=== PATIENT | female | born 1965 | race Caucasian/White ===

== ENCOUNTER 2017-01-02 20:21 | Inpatient (IN) | payer SELFPAY ==
[~2017-01-02] VITALS: Ht 160 cm; Wt 95.8 kg
[~2017-01-02 20:21] MED LIST: BIAXIN500 MG PO; CLARITIN10 MG PO; DAYPRO600 M1 PO; KEFLEX500 MG PO; MOTRIN800 MG PO; SYNTHROID0.1 MG PO
[2017-01-02 20:34] VITALS: BP 179/81
[2017-01-02 20:37] LABS: BASO # 0.1 10*3/uL (0.0-0.1); BASO % 0.9 % (0.0-1.0); EOS # 0.1 10*3/uL (0.0-0.4); HEMATOCRIT 44.2 % (37.0-47.0); HEMOGLOBIN 14.7 g/dl (12.0-16.0); LYMPH # 2.7 10*3/uL (1.3-4.4); LYMPH % 39.2 % (27.0-41.0); MEAN CELL VOLUME 90.9 fl (81.0-99.0); MEAN CORPUSCULAR HGB 30.2 pg (27.0-31.0); MEAN CORPUSCULAR HGB CONC 33.3 g/dl (33.0-37.0); MONO # 0.5 10*3/uL (0.1-1.0); MONO % 6.9 % (3.0-9.0); NEUT # 3.6 10*3/uL (2.3-7.9); NEUT % 51.7 % (47.0-73.0); PLATELET COUNT AUTOMATED 210 10*3/uL (130-400); RED BLOOD COUNT 4.86 10*6/uL (4.10-5.10); RED CELL DISTRI WIDTH 13.2 % (0-14.5); WHITE BLOOD COUNT 6.9 10*3/uL (4.8-10.8)
[2017-01-02 20:46] LABS: INTERNATIONAL NORM RATIO 0.9 (2.0-3.5)
[2017-01-02 20:49] VITALS: BP 123/68
[2017-01-02 20:54] LABS: ALBUMIN 4.2 gm/dl (3.1-4.5); ALKALINE PHOSPHATASE 92 U/L (45-117); BILIRUBIN, TOTAL 0.5 mg/dl (0.2-1.0); BUN 19 mg/dl (7-24); CARBON DIOXIDE 25 mmol/L (21-32); CHLORIDE 104 mmol/L (98-107); EST GLOM FILT AFRICAN AMERICAN > 60 ml/min; GLUCOSE 126 mg/dL (65-99); MAGNESIUM 1.8 mg/dL (1.5-2.1); POTASSIUM 3.8 mmol/L (3.5-5.1); SGOT/AST 33 IU/L (3-35); SGPT/ALT 37 U/L (12-78); SODIUM 137 mmol/L (136-145); TOTAL PROTEIN 8.2 gm/dL (6.4-8.2)
[2017-01-02 20:56] LABS: TROPONIN I < 0.015 ng/ml (<0.045)
[2017-01-02 21:01] VITALS: BP 117/68
[2017-01-02 21:38] VITALS: BP 129/58
[2017-01-02 22:13] VITALS: BP 112/62
[2017-01-02 23:00] VITALS: BP 110/70
[2017-01-03] VITALS: BP 146/75
[2017-01-03 07:03] LABS: EOS # 0.1 10*3/uL (0.0-0.4); EOS % 1.5 % (1.0-4.0); HEMATOCRIT 41.3 % (37.0-47.0); HEMOGLOBIN 13.4 g/dl (12.0-16.0); LYMPH # 1.4 10*3/uL (1.3-4.4); LYMPH % 35.4 % (27.0-41.0); MEAN CORPUSCULAR HGB 29.8 pg (27.0-31.0); MEAN CORPUSCULAR HGB CONC 32.4 g/dl (33.0-37.0); MEAN PLATELET VOLUME 10.1 fl (9.6-12.3); MONO # 0.3 10*3/uL (0.1-1.0); NEUT # 2.1 10*3/uL (2.3-7.9); NEUT % 53.8 % (47.0-73.0); PLATELET COUNT AUTOMATED 186 10*3/uL (130-400); RED BLOOD COUNT 4.49 10*6/uL (4.10-5.10); RED CELL DISTRI WIDTH 13.3 % (0-14.5)
[2017-01-03 07:28] LABS: BUN 16 mg/dl (7-24); CARBON DIOXIDE 26 mmol/L (21-32); CHLORIDE 109 mmol/L (98-107); CHOLESTEROL 283 mg/dL (<200); EST GLOM FILT AFRICAN AMERICAN > 60 ml/min; FREE T4 0.74 ng/dl (0.76-1.46); GLUCOSE 97 mg/dL (65-99); HDL CHOLESTEROL 54 mg/dl (40-60); INTERNATIONAL NORM RATIO 0.9 (2.0-3.5); LDL CHOLESTEROL 211 mg/dL (9-159); POTASSIUM 4.2 mmol/L (3.5-5.1); SODIUM 144 mmol/L (136-145); TRIGLYCERIDES 88 mg/dl (<150); VLDL CHOLESTEROL 18 mg/dL (6-40)
[2017-01-03 07:42] LABS: HEMOGLOBIN A1c 6.1 % (4.8-5.6)
[2017-01-03 08:00] VITALS: BP 131/67
[2017-01-03 08:06] LABS: VITAMIN D, 25-HYDROXY 31.2 ng/mL (30-100)
[2017-01-03 08:07] LABS: FOLIC ACID 10.98 ng/mL (>5.38)
[2017-01-03] MEDS ORDERED: LIPITOR20 MG PO (11:47)
[2017-01-03] MEDS ORDERED: SYNTHROID RP0.1 MG PO (11:47)
[2017-01-03 12:00] VITALS: BP 120/90
[2017-01-03] MEDS ORDERED: OMEPRAZOLE20 M2 PO (12:00)
== END 2017-01-03 12:50 | disposition home or self-care (01) | DRG 392 ==
LOC: ED 20:21 → 4E 22:24 → EDHOLD 22:24 → 4E 22:30
PROVIDERS: Emergency Medicine Emergency Medical Services; Internal Medicine
DX: K21.9 Gastro-esophageal reflux disease without esophagitis (principal); Z68.41 Body mass index [BMI] 40.0-44.9, adult; E78.5 Hyperlipidemia, unspecified; E03.9 Hypothyroidism, unspecified; E66.9 Obesity, unspecified; R73.03 Prediabetes; Z88.0 Allergy status to penicillin; Z82.49 Family history of ischemic heart disease and other diseases of the circulatory system

== ENCOUNTER 2018-03-02 06:50 | Inpatient (IN) | payer SELFPAY ==
[2018-03-02] VITALS (7 sets, daily range): BP systolic 116–175; BP diastolic 59–81
[~2018-03-02] VITALS: Ht 160 cm; Wt 95.9 kg
--- NOTE | ~2018-03-02 | WRIGHTHP ---
[place], [place] PATIENT HISTORY AND PHYSICAL EXAM NAME: AFUA TELLES UNIT #: [id number] ROOM: 518 DOCTOR: MESHA MENESES MD BIRTHDATE: [birth year] DOS: 03/02/2018 HISTORY OF PRESENT ILLNESS: The patient is a 52-year-old female with a past medical history of varicose veins, iron deficiency, hypothyroidism, obesity with BMI of 37.4. The patient presented to the Emergency Department with recurrent complaints of chest tightness, chest pains and feeling unwell. The patient had a CT angiogram performed in the Emergency Department showed no pulmonary embolism or any other abnormality. Cardiac enzymes were performed and they were all negative and then patient was taken for a cardiac stress test. REVIEW OF SYSTEMS: RESPIRATORY: Some complaints of progressive shortness of breath for over last 3 months. No wheezing. GASTROINTESTINAL: No nausea, vomiting, diarrhea, constipation. CARDIOVASCULAR: Complains of chest tightness and chest pains off and on. FAMILY HISTORY: Noncontributory. HOME MEDICATIONS: The patient was taking ibuprofen at home as needed. SOCIAL HISTORY: Denies smoking cigarettes, alcohol and drug abuse. ALLERGIES: Known allergies to PENICILLIN. PHYSICAL EXAMINATION: GENERAL: Alert and oriented x 3, moderately obese with a BMI of 37. 4, standard exam except for obesity. LABORATORY DATA: Negative cardiac enzymes x 3. Normal serum electrolytes. Normal CBC. IMPRESSION: 1. The patient presenting with chest tightness and chest pain from uncertain etiology with negative cardiac enzymes, was taken for a cardiac stress test this morning, which is normal so far. If Cardiolite is also reported to be negative by Cardiology later today, she can be safely discharged home to follow up with her PCP, Dr. Ivan Hanley. 2. CT angiogram of the chest negative for pulmonary embolism. 3. Suspected generalized anxiety disorder. 4. Obesity. With a BMI of 37.4 the patient to work with [employer]. [place], [place] PATIENT HISTORY AND PHYSICAL EXAM NAME: AFUA TELLES UNIT #: [id number] ROOM: 518 DOCTOR: MESHA MENESES MD BIRTHDATE: [birth year] MESHA MENESES MD CM:HISPHYS:PATIENT HISTORY AND PHYSICAL EXAMINATION 09 MESHA MENESES MD 03/03/18 1107 interface
--- NOTE | ~2018-03-02 | ST ---
[place], [place] EXERCISE STRESS TEST REPORT NAME: AFUA TELLES UNIT #: [id number] ROOM: 518 DOCTOR: MESHA MENESES MD BIRTHDATE: [birth year] DOS: 03/03/2018 TREADMILL TEST WITH CARDIOLITE FINDINGS: The patient is a 52-year-old female admitted to [facility] for chest pains. The patient's cardiac enzymes have been negative. The patient was exercised on James protocol and she exercised for a total of 6 minutes, reaching a maximum heart rate of 153 beats per minute, which is 91% of the PMHR. Cardiolite was injected during the peak phase of exercise. The patient's heart rate ranged between 94 to 153 beats per minute, blood pressure ranged between 124 systolic over 76 diastolic and 144 systolic over 88 diastolic. The patient's pulse ox remained 97 to 98% during the resting and exercise phase. The patient's baseline EKG showed normal sinus rhythm with heart rate of 94 beats per minute, normal cardiac axis, no significant ST-T abnormality. During the exercise and recovery phase, the patient did not develop any significant EKG abnormality compatible with myocardial ischemia. No angina symptoms were reported. IMPRESSION: 1. Normal EKG part of the treadmill Cardiolite stress test at 91% predicted maximal heart rate. 2. Cardiolite results to be reported by casting sorter later today. MESHA MENESES MD CM:STRESS:EXERCISE STRESS TEST REPORT [id number] MESHA MENESES MD
--- NOTE | ~2018-03-02 | EKG ---
[place], [place] ELECTROCARDIOGRAM REPORT NAME: AFUA TELLES UNIT #: [id number] ROOM: 518 DOCTOR: WALTER DRAFT REPORT BIRTHDATE: [birth year] [facility] Test Date: 2018-03-02 Test Time: 07:43:02 Pat Name: AFUA TELLES Department: Room: 518 Gender: F Rv Technician: : 1965 Requested By: QUINTEN BERRY Order Number: [id number] Reading MD: Lee Ann Keys MD Measurements Intervals [place] Rate: 81 P: 49 MS: 149 QRS: 14 QRSD: 93 T: 10 QT: 351 QTc: 408 Interpretive Statements Sinus rhythm Normal ECG Electronically Signed On 03-05-2018 12:18:37 PDT by Lee Ann Keys MD CM:EKGRPT:ELECTROCARDIOGRAM REPORT [id number] QUINTEN WATSON DRAFT REPORT QUINTEN BERRY M.D.
[~2018-03-02 06:50] MED LIST changes: +LIPITOR20 MG PO; +OMEPRAZOLE20 M2 PO; +SYNTHROID RP0.1 MG PO
[2018-03-02 07:59] LABS: BASO # 0.1 10*3/uL (0.0-0.1); EOS # 0.1 10*3/uL (0.0-0.4); HEMOGLOBIN 14.7 g/dl (12.0-16.0); LYMPH # 1.5 10*3/uL (1.3-4.4); LYMPH % 31.3 % (27.0-41.0); MEAN CELL VOLUME 92.1 fl (81.0-99.0); MEAN CORPUSCULAR HGB 30.8 pg (27.0-31.0); MEAN CORPUSCULAR HGB CONC 33.4 g/dl (33.0-37.0); MEAN PLATELET VOLUME 10.1 fl (9.6-12.3); MONO # 0.3 10*3/uL (0.1-1.0); MONO % 6.8 % (3.0-9.0); NEUT # 2.9 10*3/uL (2.3-7.9); NEUT % 59.7 % (47.0-73.0); PLATELET COUNT AUTOMATED 207 10*3/uL (130-400); RED BLOOD COUNT 4.78 10*6/uL (4.10-5.10); WHITE BLOOD COUNT 4.8 10*3/uL (4.8-10.8)
[2018-03-02 08:15] LABS: BUN 11 mg/dl (7-24); CHLORIDE 108 mmol/L (98-107); CREATININE 0.83 mg/dL (0.55-1.02); POTASSIUM 4.2 mmol/L (3.5-5.1); SGOT/AST 28 IU/L (3-35); SGPT/ALT 44 U/L (12-78); SODIUM 140 mmol/L (136-145); TOTAL PROTEIN 8.1 gm/dL (6.4-8.2)
[2018-03-02 08:17] LABS: ALKALINE PHOSPHATASE 84 U/L (45-117); TROPONIN I < 0.015 ng/ml (<0.045)
[2018-03-02] MEDS ORDERED: IBU600 M1 PO (13:16)
[2018-03-03] VITALS: BP 109/51
== END 2018-03-03 11:58 | disposition home or self-care (01) | DRG 313 ==
LOC: ED 06:50 → 5E 10:04 → EDHOLD 10:04 → 4E 10:49 → 5E 10:54
PROVIDERS: Emergency Medicine
PROC: 4A02XM4 Measurement of Cardiac Total Activity, External Approach (ICD-10-PCS; principal; 2018-03-03)
DX: R07.89 Other chest pain (principal); F41.1 Generalized anxiety disorder; E66.9 Obesity, unspecified; E78.5 Hyperlipidemia, unspecified; E03.9 Hypothyroidism, unspecified; Z68.37 Body mass index [BMI] 37.0-37.9, adult; Z71.3 Dietary counseling and surveillance; Z88.0 Allergy status to penicillin; Z82.49 Family history of ischemic heart disease and other diseases of the circulatory system; Z79.899 Other long term (current) drug therapy

== ENCOUNTER → 2018-03-22 | Outpatient (CLI) | payer SELFPAY ==
[~2018-03-22] MED LIST changes: +IBU600 M1 PO
--- NOTE | ~2018-03-22 | HM ---
[place], [place] HOLTER MONITOR REPORT NAME: AFUA TELLES UNIT #: [id number] ROOM: DOCTOR: JONE HUTTON [facility] BIRTHDATE: [birth year] DOS: 03/24/2018 HOLTER MONITOR REPORT I am covering Dr. Lei and dictating. FINDINGS: Basic rhythm is sinus rhythm. Occasional sinus tachycardia. No ventricular tachyarrhythmias noted. No sustained or nonsustained ventricular tachycardia noted. No supraventricular tachyarrhythmias noted. No bradycardia. No conduction abnormalities noted. Holter monitor is fairly benign. TAMI BECERRIL MD CM:HOLTER:HOLTER MONITOR REPORT [id number] TAMI BECERRIL MD [facility]
== END | disposition home or self-care (01) ==
LOC: CARD 07:28
DX: R06.09 Other forms of dyspnea (principal); R00.2 Palpitations

== ENCOUNTER → 2022-05-07 | Outpatient (CLI) | payer BC ==
[2022-05-07 12:07] LABS: BASO # 0.1 10*3/uL (0.0-0.1); BASO % 0.8 % (0.0-1.0); EOS % 0.4 % (1.0-4.0); HEMATOCRIT 49.8 % (37.0-47.0); LYMPH % 26.8 % (27.0-41.0); MEAN CELL VOLUME 92.9 fl (81.0-99.0); MEAN CORPUSCULAR HGB 30.2 pg (27.0-31.0); MEAN CORPUSCULAR HGB CONC 32.5 g/dl (33.0-37.0); MEAN PLATELET VOLUME 9.8 fl (9.6-12.3); MONO # 0.5 10*3/uL (0.1-1.0); MONO % 6.6 % (3.0-9.0); NEUT # 4.7 10*3/uL (2.3-7.9); NEUT % 65.1 % (47.0-73.0); PLATELET COUNT AUTOMATED 262 10*3/uL (130-400); RED BLOOD COUNT 5.36 10*6/uL (4.10-5.10); RED CELL DISTRI WIDTH 12.9 % (0-14.5); WHITE BLOOD COUNT 7.3 10*3/uL (4.8-10.8)
[2022-05-07 12:10] LABS: BILIRUBIN Negative (Negative); BLOOD 3+ (Negative); CLARITY Cloudy (Clear); COLOR Orange (Yellow); GLUCOSE Negative (Negative); KETONE Negative (Negative); LEUKO ESTERASE 2+ (Negative); NITRITE Negative (Negative); UROBILINOGEN 0.2 E.U./dl (0.0-1.0)
[2022-05-07 12:22] LABS: ALKALINE PHOSPHATASE 98 U/L (46-116); BUN 11 mg/dl (9-23); CHLORIDE 102 mmol/L (98-107); POTASSIUM 4.1 mmol/L (3.4-5.1); SGPT/ALT 24 U/L (10-49); SODIUM 140 mmol/L (136-145); TOTAL PROTEIN 7.9 gm/dL (6.0-8.0)
[2022-05-07 12:24] LABS: RBC TNTC rbc/hpf (0-2)
[2022-05-07 12:26] LABS: BACTERIA 1+
[2022-05-07 13:22] LABS: FREE T4 1.02 ng/dl (0.89-1.76)
== END | disposition home or self-care (01) ==
LOC: LAB 11:42
PROVIDERS: ATTEND Family Medicine
DX: N28.89 Other specified disorders of kidney and ureter (principal); R19.8 Other specified symptoms and signs involving the digestive system and abdomen

== ENCOUNTER → 2022-06-17 | Outpatient (CLI) | payer OTHER | END | disposition home or self-care (01) | LOC: US 01:10 | PROVIDERS: ATTEND Family Medicine | DX: K76.0 Fatty (change of) liver, not elsewhere classified (principal); N32.89 Other specified disorders of bladder; R10.13 Epigastric pain ==

== ENCOUNTER → 2022-08-05 | Day surgery (SDC) | payer OTHER ==
[~2022-08-05] VITALS: Ht 160 cm; Wt 100.7 kg
[~2022-08-05] MED LIST changes: +SYNTHROID137 MCG PO
[2022-08-05 07:25] VITALS: BP 139/76
[2022-08-05 08:23] VITALS: BP 100/60
[2022-08-05 08:38] VITALS: BP 118/80
[2022-08-05 08:53] VITALS: BP 126/81
== END | disposition home or self-care (01) ==
LOC: SDC 08-02 08:45
PROVIDERS: ATTEND Surgery
DX: K59.00 Constipation, unspecified (principal); R19.8 Other specified symptoms and signs involving the digestive system and abdomen; E11.9 Type 2 diabetes mellitus without complications; Z88.0 Allergy status to penicillin

== ENCOUNTER → 2022-08-18 | Outpatient (CLI) | payer OTHER ==
[2022-08-18 18:33] LABS: BASO # 0.1 10*3/uL (0.0-0.1); BASO % 0.9 % (0.0-1.0); EOS # 0.1 10*3/uL (0.0-0.4); EOS % 1.1 % (1.0-4.0); HEMATOCRIT 45.3 % (37.0-47.0); LYMPH # 1.9 10*3/uL (1.3-4.4); LYMPH % 35.6 % (27.0-41.0); MEAN CELL VOLUME 93.8 fl (81.0-99.0); MEAN CORPUSCULAR HGB 31.3 pg (27.0-31.0); MEAN CORPUSCULAR HGB CONC 33.3 g/dl (33.0-37.0); MEAN PLATELET VOLUME 9.9 fl (9.6-12.3); MONO # 0.4 10*3/uL (0.1-1.0); MONO % 7.1 % (3.0-9.0); NEUT % 55.1 % (47.0-73.0); PLATELET COUNT AUTOMATED 256 10*3/uL (130-400); RED BLOOD COUNT 4.83 10*6/uL (4.10-5.10); RED CELL DISTRI WIDTH 13.6 % (0-14.5); WHITE BLOOD COUNT 5.4 10*3/uL (4.8-10.8)
[2022-08-18 19:11] LABS: VITAMIN D, 25-HYDROXY 69.2 ng/mL (30-100)
[2022-08-21 10:07] LABS: PROTEIN S - FUNCTIONAL 132 % (63-140)
== END | disposition home or self-care (01) ==
LOC: LAB 01:37
PROVIDERS: ATTEND Physical Therapist
DX: R53.83 Other fatigue (principal); Z83.2 Family history of diseases of the blood and blood-forming organs and certain disorders involving the immune mechanism

== ENCOUNTER → 2022-09-23 | Outpatient (CLI) | payer OTHER | END | disposition home or self-care (01) | LOC: US 01:52 | PROVIDERS: ATTEND Family Medicine | DX: D25.1 Intramural leiomyoma of uterus (principal) ==